=== PATIENT | female | born 1945 | race Caucasian/White ===

== ENCOUNTER 2019-10-06 22:37 | Emergency (ER) | payer MEDICARE, BC ==
[2019-10-06] MEDS ORDERED: Diltiazem 25 MG/5 ML SDV IVPUSH ONE (22:45)
[2019-10-06] MEDS ORDERED: Sodium Chloride 0.9% 10 ML Syringe FLUSH PRN (23:00)
[2019-10-06] MEDS ORDERED: Metoprolol Tartrate 50 MG Tab PO ONE (23:04)
--- NOTE | 2019-10-06 23:31 | EDM.PDOC ---
ED HPI GENERAL MEDICAL PROBLEM - General Chief Complaint: Cardiovascular Problem Stated Complaint: Heart Problem Time Seen by Provider: 10/06/19 22:45 Source of Information: Reports: Patient History Limitations: Reports: No Limitations - History of Present Illness INITIAL COMMENTS - FREE TEXT/NARRATIVE: patient presented to the ED because of palpitations which started 3 days ago. She denies any chest pain,N/V,diaphoresis or dizziness. She has a h/o AFIB and is taking propranolol for rate control. - Related Data Allergies Allergy/AdvReac Type Severity Reaction Status Date / Time lisinopril [From Prinivil] Allergy Cough Verified 10/06/19 22:58 Home Meds: Home Meds .Cholesterol Pill 06/21/14 [History] .Losaartan 06/21/14 [History] .Propranolol 06/21/14 [History] Aspirin [Audi Chewable Aspirin] 81 mg PO DAILY 06/21/14 [History] Multivitamin [Multivitamins] 1 tab PO DAILY 06/21/14 [History] Metoprolol Succinate 50 mg PO DAILY #30 tab.er.24h 10/06/19 [Rx] ED ROS GENERAL - Review of Systems Review Of Systems: See Below Constitutional: Reports: No Symptoms HEENT: Reports: No Symptoms Respiratory: Reports: No Symptoms Cardiovascular: Reports: Palpitations Endocrine: Reports: No Symptoms GI/Abdominal: Reports: No Symptoms : Reports: No Symptoms Musculoskeletal: Reports: No Symptoms Skin: Reports: No Symptoms Neurological: Reports: No Symptoms Psychiatric: Reports: No Symptoms ED EXAM, GENERAL - Physical Exam Exam: See Below Exam Limited By: No Limitations General Appearance: Alert, No Apparent Distress Nose: Normal Inspection, Normal Mucosa, No Blood Throat/Mouth: Normal Inspection, Normal Lips, Normal Teeth, Normal Gums Head: Atraumatic, Normocephalic Neck: Normal Inspection, Supple, Non-Tender, Full Range of Motion Respiratory/Chest: No Respiratory Distress, Lungs Clear, Normal Breath Sounds, No Accessory Muscle Use, Chest Non-Tender Cardiovascular: Normal Peripheral Pulses, No Edema, No Gallop, No JVD, No Murmur , No Rub, Tachycardia, Irregularly Irregular Peripheral Pulses: 0: Radial (R) Back Exam: Normal Inspection, Full Range of Motion Extremities: Normal Inspection, Normal Range of Motion, No Pedal Edema, Normal Capillary Refill Neurological: Alert, Oriented, CN II-XII Intact, Normal Cognition, Normal Gait, Normal Reflexes, No Motor/Sensory Deficits Psychiatric: Normal Affect, Normal Mood Skin Exam: Warm, Dry, Intact, Normal Color, No Rash Lymphatic: No Adenopathy Course - Vital Signs Text/Narrative:: labs/EKG reviewed with patient and family and with full understanding EKG-AFIB with RVR 150's cardizem 15 mg IV and her HR improved to 70's metoprolol tartrate 50 mg po x1 Last Recorded V/S: Last Vital Signs Temp 36.3 C 10/06/19 22:40 Pulse 87 10/06/19 22:55 Resp BP 146/89 H 10/06/19 22:55 Pulse Ox - Orders/Labs/Meds Orders: Active Orders 24 hr Category Date Time Status EKG Documentation Completion [RC] ASDIRECTED Care 10/06/19 22:47 Active Sodium Chloride 0.9% [Saline Flush] Med 10/06/19 23:00 Active 10 ml FLUSH ASDIRECTED PRN EKG 12 Lead [EK] Routine Ther 10/06/19 22:47 Ordered Medication Orders Sodium Chloride (Saline Flush) 10 ml FLUSH ASDIRECTED PRN PRN Reason: Keep Vein Open Last Admin: 10/06/19 23:00 Dose: 10 ml Labs: Laboratory Tests 10/06/19 10/06/19 10/06/19 Range/Units 23:01 23:01 23:01 WBC 7.5 (4.5-12.0) X10-3/uL RBC 4.90 (3.23-5.20) x10(6)uL Hgb 14.7 (11.5-15.5) g/dL Hct 44.5 (30.0-51.3) % MCV 90.9 (80-96) fL MCH 29.9 (27.7-33.6) pg MCHC 32.9 (32.2-35.4) g/dL RDW 13.8 (11.5-15.5) % Plt Count 223 (125-369) X10(3)uL MPV 10.5 H (7.4-10.4) fL Neut % (Auto) 68.8 (46-82) % Lymph % (Auto) 21.4 (13-37) % [place] % (Auto) 7.0 (4-12) % Eos % (Auto) 2 (1.0-5.0) % Baso % (Auto) 1 (0-2) % Neut # (Auto) 5.2 (1.6-8.3) # Lymph # (Auto) 1.6 (0.6-5.0) # [place] # (Auto) 0.5 (0.0-1.3) # Eos # (Auto) 0.2 (0.0-0.8) # Baso # (Auto) 0.0 (0.0-0.2) # Sodium 140 (135-145) mmol/L Potassium 4.2 (3.5-5.3) mmol/L Chloride 102 (100-110) mmol/L Carbon Dioxide 29 (21-32) mmol/L BUN 37 H (7-18) mg/dL Creatinine 1.2 H (0.55-1.02) mg/dL Est Cr Clr Drug Dosing TNP Estimated GFR (MDRD) 44 L (>60) BUN/Creatinine Ratio 30.8 H (9-20) Glucose 131 H (80-116) mg/dL Calcium 9.7 (8.6-10.2) mg/dL Troponin I < 0.017 L (<0.017-0.056) ng/mL Meds: Medications Generic Name Dose Route Start Last Admin Trade Name Freq PRN Reason Stop Dose Admin Sodium Chloride 10 ml 10/06/19 23:00 10/06/19 23:00 Saline Flush FLUSH 10 ml ASDIRECTED PRN Administration Keep Vein Open Discontinued Medications Generic Name Dose Route Start Last Admin Trade Name Freq PRN Reason Stop Dose Admin Diltiazem HCl 25 mg 10/06/19 22:45 10/06/19 23:02 Diltiazem IVPUSH 10/06/19 22:46 15 mg ONETIME ONE Administration Metoprolol Tartrate 50 mg 10/06/19 23:04 10/06/19 22:55 Lopressor PO 10/06/19 23:05 50 mg ONETIME ONE Administration Departure - Departure Time of Disposition: 23:55 Disposition: Home, Self-Care 01 Condition: Good Clinical Impression: Afib Prescriptions: Metoprolol Succinate 50 mg PO DAILY #30 tab.er.24h Instructions: Atrial Fibrillation Referrals: Jamee Ashraf NP [Primary Care Provider] - Forms: ED Department Discharge Additional Instructions: please read discharge instructions on AFIBquit taking propranolol Take metoprolol ER 50 mg daily instead of metoprolol follow up this week. - My Orders Last 24 Hours: My Active Orders 10/06/19 22:47 EKG Documentation Completion [RC] ASDIRECTED EKG 12 Lead [EK] Routine 10/06/19 23:00 Sodium Chloride 0.9% [Saline Flush] 10 ml FLUSH ASDIRECTED PRN - Assessment/Plan Last 24 Hours: My Active Orders 10/06/19 22:47 EKG Documentation Completion [RC] ASDIRECTED EKG 12 Lead [EK] Routine 10/06/19 23:00 Sodium Chloride 0.9% [Saline Flush] 10 ml FLUSH ASDIRECTED PRN
[2019-10-07] MEDS ORDERED: Metoprolol Succinate 50 MG Tab.ER ONE (00:30)
[2019-10-07] MEDS ORDERED: Metoprolol Succinate 50 MG Tab.ER PO ONE (00:30)
[2019-10-07] MEDS ORDERED: Metoprolol Succinate 50 MG Tab.ER PO SCH (09:00)
== END 2019-10-07 00:45 | disposition home or self-care (01) ==
LOC: FB.ED 22:37
DX: I48.91 Unspecified atrial fibrillation (principal); Z79.82 Long term (current) use of aspirin; Z79.899 Other long term (current) drug therapy; Z88.8 Allergy status to other drugs, medicaments and biological substances
CPT/HCPCS: 36415; 80048; 84484; 85025; 93005; 93010; 96374; 99284; 99285-25; A9270-GY; J3490

== ENCOUNTER 2022-09-03 19:59 | Emergency (ER) | payer MEDICARE, BC ==
[2022-09-03] MEDS ORDERED: Sulfamethoxazole/Trimethoprim 800-160 MG Tab PO ONE (20:00)
[2022-09-03] MEDS ORDERED: Diltiazem 25 MG/5 ML SDV IVPUSH ONE (20:09)
[2022-09-03] MEDS ORDERED: Metoprolol Tartrate 50 MG Tab PO ONE (20:23)
[2022-09-03 20:50] LABS: ESTIMATED GFR 52 mL/min (>60)
[2022-09-03] MEDS ORDERED: Amiodarone 200 MG Tab PO STA (21:03)
[2022-09-03] MEDS ORDERED: Metoprolol Tartrate 25 MG Tab PO STA (21:14)
== END 2022-09-03 22:47 | disposition home or self-care (01) ==
LOC: FB.ED 19:59
DX: I48.91 Unspecified atrial fibrillation (principal); N39.0 Urinary tract infection, site not specified; I10 Essential (primary) hypertension; M19.90 Unspecified osteoarthritis, unspecified site; E66.9 Obesity, unspecified; Z68.32 Body mass index [BMI] 32.0-32.9, adult; Z88.8 Allergy status to other drugs, medicaments and biological substances; Z79.82 Long term (current) use of aspirin; Z79.899 Other long term (current) drug therapy; Z79.01 Long term (current) use of anticoagulants
CPT/HCPCS: 36415; 80053; 81001; 83880; 84484; 85025; 87086; 87088; 87186; 93005; 99285; A9270

== ENCOUNTER 2022-12-28 12:34 | Emergency (ER) | payer MEDICARE, BC ==
[2022-12-28 13:17] LABS: ESTIMATED GFR 59 mL/min (>60)
[2022-12-28] MEDS: Sodium Chloride 0.9% 10 ML Syringe FLUSH PRN ×2 (13:20→13:35)
[2022-12-28] MEDS ORDERED: Diltiazem 25 MG/5 ML SDV IVPUSH ONE (13:26)
[2022-12-28] MEDS ORDERED: Sodium Chloride 0.9% 1,000 ML IV SCH (13:30)
== END 2022-12-28 14:12 | disposition home or self-care (01) ==
LOC: FB.ED 12:34
DX: I48.92 Unspecified atrial flutter (principal); I48.91 Unspecified atrial fibrillation; E78.00 Pure hypercholesterolemia, unspecified; I10 Essential (primary) hypertension; E66.9 Obesity, unspecified; Z88.8 Allergy status to other drugs, medicaments and biological substances; Z79.01 Long term (current) use of anticoagulants; Z79.899 Other long term (current) drug therapy; Z68.32 Body mass index [BMI] 32.0-32.9, adult
CPT/HCPCS: 36415; 71045; 80053; 83880; 84484; 85025; 93005; 96361; 96374; 99285-25; J3490; J7030